=== PATIENT | male | born 1955 | race Caucasian/White ===

== ENCOUNTER 2019-01-12 05:35 | Observation (INO) | payer BC ==
[2019-01-12] VITALS (21 sets, daily range): BP systolic 122–157; BP diastolic 56–84; PULSE 49–74; RESP 9–20; Ht 188 cm; Wt 93.8 kg
[~2019-01-12] VITALS: Ht 188 cm; Wt 93.8 kg
[2019-01-12] MEDS ORDERED: ACETYLCYSTEINE 600 MG CAP PO SCH (05:47)
[2019-01-12] MEDS ORDERED: SOD CHLORIDE 0.9% 1,000 ML IV SCH (06:39)
[2019-01-12] MEDS ORDERED: VANCOMYCIN 1 GM (PMX) 250 ML IVPB STA (06:47)
[2019-01-12] MEDS ORDERED: POLYMYXIN/BACITRACIN 1L IRRIG ONE (07:21)
[2019-01-12] MEDS ORDERED: BUPIVACAINE 0.5% (SDV) 30 ML INJ ONE (07:24)
[2019-01-12] MEDS ORDERED: LIDOCAINE 1%/EPI (1:100,000) (MDV) 20 ML ONE ×2 (07:24→07:52)
[2019-01-12] MEDS ORDERED: FENTAnyl 50 MCG/ML VIAL ONE ×4 (07:32→08:24)
[2019-01-12] MEDS ORDERED: LIDOCAINE 1% (MDV) 20 ML INJ ONE (07:32)
[2019-01-12] MEDS ORDERED: ETOMIDATE 20 MG INJ ONE (07:32)
[2019-01-12] MEDS ORDERED: MIDAZOLAM 1 MG/ML 2 ML INJ ONE (07:33)
[2019-01-12] MEDS ORDERED: ASPI81TA52 PO (07:43)
[2019-01-12] MEDS ORDERED: DIGO125T PO (07:44)
[2019-01-12] MEDS ORDERED: ATOR40TA68 PO (07:45)
[2019-01-12] MEDS ORDERED: CARV12.579 PO (07:45)
[2019-01-12] MEDS ORDERED: SACU1TAB PO (07:46)
[2019-01-12] MEDS ORDERED: SACU1TAB7 PO (07:46)
--- NOTE | 2019-01-12 07:58 | PREAC ---
Date/Time of Note Date/Time of Note DATE: 01/12/19 TIME: 07:57 Anesthesia Eval and Record Evaluation Time Pre-Procedure Interview DATE: 01/12/19 TIME: 07:57 Age 63 Sex male NPO: 8 hrs Preoperative diagnosis CHF cardiomyopathy Planned procedure AICD biventicular placement Past Medical History Past Medical History: Includes Cardio: CAD, PTCA/Stent, CHF Surgery & Anesthesia Issues No known issue Meds Anticoagulation: No Beta Marcelo within 24 hr: No Reason Beta Marcelo not given: Pt. not on B-Marcelo Reported Medications Sacubitril/Valsartan (Entresto 24 mg-26 mg Tablet) 1 Each Tablet, 1 EACH PO BID, TAB 01/12/19 Sacubitril/Valsartan (Entresto 49 mg-51 mg Tablet) 1 Each Tablet, 0.5 EACH PO BID, TAB 01/12/19 Carvedilol* (Carvedilol*) 12.5 Mg Tablet, 12.5 MG PO BID, #60 TAB 01/12/19 Atorvastatin* (Atorvastatin*) 40 Mg Tablet, 40 MG PO QHS, #30 TAB 01/12/19 Digoxin* (Digitek*) 125 Mcg Tablet, 0.125 MG PO DAILY, TAB 01/12/19 Aspirin (Low Dose Aspirin) 81 Mg Tablet.dr, 81 MG PO DAILY, #30 TAB 01/12/19 Current Medications Vancomycin HCl 250 ml @ 125 mls/hr ONCE STAT IVPB ; Start 01/12/19 at 06:47; Stop 01/12/19 at 08:46 Meds reviewed: Yes Allergies Coded Allergies: Penicillins (Verified Allergy, Unknown, RASH, 01/12/19) erythromycin base (Verified Allergy, Unknown, RASH, 01/12/19) Allergies Reviewed: Yes Labs/Studies Labs Reviewed: Reviewed by anesthesiologist Result Diagram: 01/12/19 0603 01/12/19 0603 Laboratory Tests 01/12/19 06:03 test: N/A Pre-procedure Exam Last vitals Vital Signs Date Temp Pulse Resp B/P (MAP) Pulse Ox O2 O2 Flow FiO2 Time Delivery Rate 01/12/19 98.0 49 18 127/69 97 Room Air 06:58 (88) Airway: Adequate mouth opening, Adequate thyromental dist Mallampati: Mallampati III Teeth: Normal Lung: Normal Heart: Normal ASA Physical Status ASA physical status: 4 Emergency: None Pre-operative Attestations Prior to commencing anesthesia and surgery, the patient was re-evaluated, there was verification of: *The patient's identity *The results of appropriate recent lab work and preoperative vital signs *The above evaluation not changing prior to induction *Anesthetic plan, risk benefits, alternative and complications discussed with patient/family; questions answered; patient/family understands, accepts and wishes to proceed. KAVITA MOSS DO Jan 12, 2019 07:58
[2019-01-12] MEDS ORDERED: HYDROmorphONE 1 MG/5 ML IV SYRINGE IV PRN ×2 (08:00)
[2019-01-12] MEDS ORDERED: morphine 2 MG INJ IV PRN (10:00)
[2019-01-12] MEDS ORDERED: VANCOMYCIN IV PER PHARMACY XX SCH (10:00)
--- NOTE | 2019-01-12 10:10 | OPR ---
Date/Time of Note Date/Time of Note DATE: 01/12/19 TIME: 10:04 Operative Report Procedure Date: Jan 12, 2019 Preoperative Diagnosis Congestive heart failure, severe ischemic cardiomyopathy, Postoperative Diagnosis Same Operation/Procedure Performed By V ICD placement and DFT testing Surgeon see signature line Visual Supervisor Nuno Anesthesia Type: other Anesthesiologist: KAVITA MOSS DO Estimated Blood Loss: minimal Transfusion none Specimen None Grafts/Implants none Complications none Procedure Description PROCEDURE PERFORMED: 1. Succesful implantation of BIV/ ICD with placement of RV ( ICD) lead, RA lead and LV lead usnig a MRI compatible [place] device. 2. Defibrillator threshold testing (DFT testing). 3. coronary sinus venogram Maintenance Groundman: Fitz Quevedo MD Anesthesia: per anesthisiololgist INDICATION: Class II-III CHF. severe cardiomyopathy. ( pt meets MADIT II and SCD-Hef criteria for BIV/ ICD PLACEMENT . PROCEDURE IN DETAIL: Written informed consent was obtained after risks benefits and alternatives discussed with the patient and family in detail. Risks including but not limited to risk of infection, bleeding complications, anesthesia related complications, DE, CVA, perforation, pneumothorax hemothorax, etc discussed with pt in detail. Patient was brought into into the [employer] and placed in supine position. sedation was given. Right and left chest area was prepped and draped in regular sterile fashion. Left AC groove area was anesthetized using 1% lidocaine with epi. A 4 cm incision was made in the AC groove area. Blunt dissection was carried out. Cephalic vein could not be isolated. Left subclavian vein was cannulated using a micropuncture needle. Venous flow was obtained. Then the micropuncture sheath was advanced. Wire was advanced. I changed him to a 6 Burkinan sheath entry wire was placed into it. Sheath was removed and 8 Burkinan sheath was placed into the left subclavian vein for the RV lead. RV ICD lead was advanced under direct fluoroscopy and placed in the apex. Once a good position was found, threshold was checked which showed excellent threshold. It was screwed into place and threshold were checked again which showed good injury pattern and no diaphragmatic stimulation at 10 V an excellent thresholds. Then the sheath was peeled away. Another 6 Burkinan sheath was placed over the second wire into the subclavian vein . Right atrial lead was advanced under direct fluoroscopy and placed into the right atrial appendage. Once a good position was found it was screwed into place. Thresholds were checked again which showed excellent injury pattern and no diaphragmatic assimilation at 10 V and good thresholds. Right atrial lead sheath was removed. Both leads were tied down using 0 Ethibond suture. a 9.5 F sheath was placed into left subclavian vein. a figure of 8 was tied down around it. Then I used an inner and outer catheter and a therumu wire and was able to engage into the coronary sinus. venogram of coronary sinus was done. then a 0.14 wire was advance into the lateral branch and LV lead advanced over the wire into the lateral branch of the coronary sinus. threshold was checked which was excellent. then sheaths were pilled away. LV lead was tied down using a 0 suture. Device was placed into the pocket and sutured using 0 Ethibond suture. At this point if defibrillator threshold testing was performed. First external defibrillator was checked as 1 J. Then through the device patient was induced into V. fib using the method of shock on T. The device appropriately detected the V. fib and successfully cardioverted the patient back into sinus/paced rhythm at 17.5 J. Pocket was irrigated again using antibiotic solution. Wound was closed with 1 layer of 2.0 Vicryl and 2 layers of 3.0 Vicryl. Steri- Strip was applied and pressure dressing was applied. Patient tolerated procedure well with no complication and was transferred to the recovery room in stable condition. Immediate complication: none Contrast used: 10 cc Please see physical chart for details regarding pacemaker information and thresholds. Conclusions: Successful implantation of dual-chamber ICD and defibrillator threshold testing. FITZ QUEVEDO MD Jan 12, 2019 10:10
[2019-01-12] MEDS: DIGOXIN 0.125 MG TAB PO SCH ×2 (12:32→13:00)
[2019-01-12] MEDS ORDERED: VANCOMYCIN HCL 1.75 GM in SOD CHLORIDE 0.9% 500 ML IVPB SCH (15:00)
--- NOTE | 2019-01-12 16:43 | HP ---
DATE OF ADMISSION: 01/12/2019 CHIEF COMPLAINT: CHF, status post-ICD placement. HISTORY OF PRESENT ILLNESS: This is a 63-year-old male with a past medical history of cardiomyopathy with ejection fraction of 20%, history of coronary artery disease, history of hypertension, history of left bundle branch block who presents to [facility] to undergo elective ICD plac ement. The patient was seen by his party plan dealer, Dr. Quevedo in outpatient setting and scheduled for ICD placement. The patient underwent placement of an ICD today without any intraoperative complicati ons. Postoperatively, the patient is stable, complaining of mild pain at the ICD placement site. Th ere were no reports of any hemoptysis, hematemesis or hematochezia. PAST MEDICAL HISTORY: As stated above, history of hypertension, cardiomyopathy, coronary artery dise ase. PAST SURGICAL HISTORY: History of cardiac catheterization. FAMILY HISTORY: No family history of kidney disease. SOCIAL HISTORY: Does not drink, smoke or do drugs. REVIEW OF SYSTEMS: A 14-point review of systems was conducted. Pertinent positives stated in HPI, o therwise negative. PHYSICAL EXAMINATION: VITAL SIGNS: Blood pressure is 157/74, respirations 20, pulse 61, temperature 97.7. HEENT: Head is normocephalic. NECK: Supple. HEART: Regular rate. LUNGS: Show diminished breath sounds at the base. ABDOMEN: Soft, nontender to palpation without rebound or guarding. EXTREMITIES: Negative for clubbing, cyanosis. No edema. DERMATOLOGIC: No rashes. MUSCULOSKELETAL: No joint effusion. NEUROLOGIC: No focal deficits. MEDICATIONS: The patient's medications have been reviewed. LABORATORY DATA: Has been reviewed. ASSESSMENT AND PLAN: This is a 63-year-old male who presents with: 1. Ischemic cardiomyopathy. The patient is status post ICD placement. We will continue to monitor, continue pain control. Follow up with cardiology. 2. Hypertension. Blood pressure currently controlled. Continue current blood pressure regimen. 3. . 4. History of coronary artery disease. Continue medical management. 5. History of arrhythmia. The patient is status post placement. Continue to monitor. 6. Leukopenia, mild. Continue to monitor. Please note I spent an additional 30 minutes of [id number] time discussing code status and advance directives. The patient is FULL CODE. Dictated By: ROSAURA TOMAS DO NR/NTS Conf#: [id number] DID#: [id number] CC: FITZ QUEVEDO MD;*End*
[2019-01-12] MEDS ORDERED: ATORVASTATIN 40 MG TAB PO SCH (21:00)
[2019-01-12] MEDS: SACUBITRIL/VALSARTAN (24mg-26mg) TABLET PO SCH (21:57)
[2019-01-13] VITALS: PULSE 89
[2019-01-13] MEDS ORDERED: VANCOMYCIN HCL 1.5 GM in SOD CHLORIDE 0.9% 250 ML IVPB SCH (03:00)
[2019-01-13 03:25] VITALS: BP 117/60; PULSE 60; RESP 20
[2019-01-13 04:00] VITALS: PULSE 66
[2019-01-13 07:40] VITALS: BP 148/70; PULSE 66; RESP 18
--- NOTE | 2019-01-13 08:57 | CONS ---
Consult Date/Type/Reason Admit Date/Time Jan 12, 2019 at 10:03 Initial Consult Date Type of Consultation: cv Date/Time of Note DATE: 01/13/19 TIME: 08:45 Subjective cardiology follow up S D/w staff and physicians. D/W minimal chest wall pain no PND orthopnea O : General: no acute distress HEENT: NC/AT. pupils are equal. round. NECK: NO JVD. no stridor. CV: RRR. systolic murmur; no gallop or rubs. PULM: no wheezing or rhonchi. GI: SOFT, NT, ND, no rebound or guarding Extremity: trace B/L LE edema. no clubbing. neuro: awake and alert, OX3. Psych: calm and pleasant rectal: deferred : normal chest no hematoma or bleeding Objective Vitals Vital Signs Date Temp Pulse Resp B/P (MAP) Pulse Ox O2 O2 Flow FiO2 Time Delivery Rate 01/13/19 99.1 66 18 148/70 94 Room Air 07:40 (96) Intake and Output 01/12/19 01/12/19 01/13/19 1515:00 23:00 07:00 IntakeIntake Total 450 ml 250 ml BalanceBalance 450 ml 250 ml Results/Medications Result Diagram: 01/13/1952401/13/19 0525 Results 24 hrs Laboratory Tests Test 01/13/19 05:25 White Blood Count 7.3 # Red Blood Count 4.08 L Hemoglobin 13.5 L Hematocrit 38.4 L Mean Corpuscular Volume 94.1 Mean Corpuscular Hemoglobin 33.1 H Mean Corpuscular Hemoglobin Concent 35.2 Red Cell Distribution Width 12.3 Platelet Count 119 #L Mean Platelet Volume 11.9 H Immature Granulocytes % 0.300 Neutrophils % 71.6 Lymphocytes % 12.5 L Monocytes % 13.9 H Eosinophils % 1.0 Basophils % 0.7 Nucleated Red Blood Cells % 0.0 Immature Granulocytes # 0.020 Neutrophils # 5.2 Lymphocytes # 0.9 Monocytes # 1.0 H Eosinophils # 0.1 Basophils # 0.1 Nucleated Red Blood Cells # 0.0 Sodium Level 140 Potassium Level 4.0 Chloride Level 104 Carbon Dioxide Level 28 Anion Gap 8 Blood Urea Nitrogen 14 Creatinine 0.82 Est Glomerular Filtrat Rate mL/min > 60 Glucose Level 114 Calcium Level 8.3 L Total Bilirubin 1.4 H Direct Bilirubin 0.00 Indirect Bilirubin 1.4 H Aspartate Amino Transf (AST/SGOT) 26 Alanine Aminotransferase (ALT/SGPT) 34 Alkaline Phosphatase 59 Total Protein 5.8 #L Albumin 3.3 Globulin 2.50 Albumin/Globulin Ratio 1.32 Home Meds Reported Medications Sacubitril/Valsartan (Entresto 24 mg-26 mg Tablet) 1 Each Tablet, 1 EACH PO BID, TAB 01/12/19 Sacubitril/Valsartan (Entresto 49 mg-51 mg Tablet) 1 Each Tablet, 0.5 EACH PO BID, TAB 01/12/19 Carvedilol* (Carvedilol*) 12.5 Mg Tablet, 12.5 MG PO BID, #60 TAB 01/12/19 Atorvastatin* (Atorvastatin*) 40 Mg Tablet, 40 MG PO QHS, #30 TAB 01/12/19 Digoxin* (Digitek*) 125 Mcg Tablet, 0.125 MG PO DAILY, TAB 01/12/19 Aspirin (Low Dose Aspirin) 81 Mg Tablet.dr, 81 MG PO DAILY, #30 TAB 01/12/19 Medications Current Medications Morphine Sulfate (morphine) 1 mg Q1H PRN IV PAIN; Start 01/12/19 at 10:00 Vancomycin HCl (Vanco Iv Per Pharmacy) VANCOMYCIN PER PHARMACY PER PROTOCOL XX ; Start 01/12/19 at 10:00 Aspirin (Halfprin) 81 mg DAILY PO ; Start 01/13/19 at 09:00 Atorvastatin Calcium (Lipitor) 40 mg QHS PO Last administered on 01/12/19at 21:57; Admin Dose 40 MG; Start 01/12/19 at 21:00 Carvedilol (Coreg) 12.5 mg BID PO Last administered on 01/12/19at 21:57; Admin Dose 12.5 MG; Start 01/12/19 at 21:00 Digoxin (Digoxin) 0.125 mg DAILY@1300 PO ; Start 01/12/19 at 13:00 Sacubitril/ Valsartan (Entresto 24 Mg-26 Mg) 1 tab BID PO Last administered on 01/12/19at 21:57; Admin Dose 1 TAB; Start 01/12/19 at 21:00 Vancomycin HCl 1.5 gm/Sodium Chloride 250 ml @ 83.333 mls/ hr Q12H IVPB Last administered on 01/13/19at 03:28; Admin Dose 83.333 MLS/HR; Start 01/13/19 at 03:00 Assessment/Plan Hospital Course (Demo Recall) 1.CHF CARDIOMYOPATHY CAD S/P BIV ICD cont home meds dc home By V ICD was interrogated today which showed normal functioning ICD. Outpatient follow-up with FITZ Rodriguez MD Jan 13, 2019 08:56
[2019-01-13] MEDS ORDERED: ASPIRIN (EC) 81 MG TAB PO SCH (09:00)
[2019-01-13] MEDS: SACUBITRIL/VALSARTAN (24mg-26mg) TABLET PO SCH (09:02)
[2019-01-13 09:19] VITALS: PULSE 71
--- NOTE | 2019-01-14 01:00 | DS ---
DATE OF ADMISSION: 01/12/2019 DATE OF DISCHARGE: 01/13/2019 HOSPITAL COURSE: This is a 63-year-old male with a past medical history of cardiomyopathy, ejection fraction 20%, history of coronary artery disease, history of hypertension, left bundle branch block w ho presented to [facility] and underwent elective ICD placement and pacemaker place ment by Dr. Quevedo. The patient met criteria for ICD placement due to his underlying cardiomyopathy. The patient had a procedure performed. Following the procedure, the patient was admitted to [facility] for observation overnight. Overnight, the patient has been stable without any complaints, no vidhya st pain, hemoptysis, hematemesis or hematochezia. The patient currently is stable and will be discha rged home where he will follow up with his physician, Dr. Quevedo in 1 week's time. At the time of discharge, the patient is stable in no acute distress. FINAL DIAGNOSES: 1. Ischemic cardiomyopathy. 2. Hypertension. 3. Coronary artery disease. 4. Arrhythmia, status post pacemaker placement. 5. Mild leukopenia. 6. Mild hyperbilirubinemia. The patient will have further evaluation in outpatient setting. FINAL MEDICATIONS: See reconciliation list. Please note I spent over 30 minutes of time preparing the patient's discharge. At the time of discharge, the patient is stable in no acute distress. Dictated By: ROSAURA TOMAS DO NR/NTS Conf#: [id number] DID#: [id number] CC: FITZ QUEVEDO MD;*EndCC*
--- NOTE | 2019-01-14 01:15 | DS ---
DATE OF ADMISSION: 01/12/2019 DATE OF DISCHARGE: 01/13/2019 No dictation. Dictated By: ROSAURA MAURICE/JESUS ALBERTO Conf#: [id number] DID#: [id number] CC: FITZ FELIX MD;*EndCC*
== END 2019-01-13 11:00 | disposition home or self-care (01) ==
LOC: SDS 05:35 → REC 10:03 → 6WM 11:51
PROVIDERS: ADMIT Internal Medicine Interventional Cardiology; ATTEND Internal Medicine Interventional Cardiology
DX: I25.5 Ischemic cardiomyopathy (principal); I11.0 Hypertensive heart disease with heart failure; I50.9 Heart failure, unspecified; D72.819 Decreased white blood cell count, unspecified; I25.10 Atherosclerotic heart disease of native coronary artery without angina pectoris
CPT/HCPCS: 33249; 71045; 80053; 80061; 82553; 85025; 85610; 85730; 93005; 99217; G0378; J1644; J2250; J3010; J3370; J7040; J7050; C1777; C1882; C1898; C1900